=== PATIENT | male | born 1940 | race Caucasian/White ===

== ENCOUNTER 2017-01-21 18:54 | Observation (INO) | payer OTHER ==
[~2017-01-21] VITALS: Ht 180.3 cm; Wt 89.8 kg
[~2017-01-21 18:54] MED LIST: BENTYL20 MG PO; CARAFATE1 GM PO; CLONAZEPAM0.5 MG PO; METOPROLOL TART25 MG PO; PRILOSEC OTC20 MG PO; RAMIPRIL10 MG PO; SIMVASTATIN20 MG PO
[2017-01-21 20:21] LABS: HEMATOCRIT 43.5 % (38.0-50.0); MCH 29.8 PG (29.0-34.0); MCV 87.5 FL (86-99); MEAN PLAT.VOLUME 9.1 uM^3 (9.0-12.4); PLATELET COUNT 189 K/uL (156-360); RBC DIS.WIDTH-CV 14.8 % (11.8-14.6); RBC DIS.WIDTH-SD 47.3 % (39-53); RED BLOOD COUNT 4.97 M/uL (4.00-5.50); WHITE BLOOD COUNT 7.5 K/uL (4.1-10.2)
[2017-01-21 20:29] LABS: CHLORIDE 101 mEq/L (99-109); POTASSIUM 3.9 mEq/L (3.7-5.4); SODIUM 134 mEq/L (136-147)
[2017-01-21 20:31] LABS: GLUCOSE 99 mg/dL (70-99)
[2017-01-21 20:33] LABS: ANION GAP 9 MEQ/L (2-14)
[2017-01-21 20:35] LABS: GFR ESTIMATE (CALCULATED) > 59 mL/min/
[2017-01-21 20:36] LABS: UREA NITROGEN (BUN) 22 mg/dL (9-23)
[2017-01-21 20:40] LABS: TROP-I INTERPRETATION NEGATIVE; TROPONIN-I < 0.01 ng/mL (0.0-0.30)
[2017-01-21 21:39] LABS: HDL CHOLESTEROL 24 MG/DL (Desirable>=40); LDL CHOLESTEROL 92 mg/dL (Desirable<100); NON-HDL CHOLESTEROL 120 mg/dL (Desirable<160); TOTAL CHOLESTEROL 144 mg/dL (Desirable<200); TRIGLYCERIDES 140 MG/DL (Normal: <150)
[2017-01-21] MEDS ORDERED: METOPROLOL SUCC25 MG PO (23:44)
[2017-01-21] MEDS ORDERED: HYDRALAZINE HCL25 MG PO (23:45)
[2017-01-21] MEDS ORDERED: DIOVAN HCT 11 TABLET PO (23:45)
[2017-01-21] MEDS ORDERED: AMLODIPINE BES2.5 MG PO (23:45)
[2017-01-22 01:40] VITALS: BP 139/80
[2017-01-22 06:39] LABS: Estimated Average Glucose 88 mg/dL (70-123); HEMOGLOBIN A1c (GLYCOHEMOGLOB) 4.7 % HGB (Below 5.7)
[2017-01-22 06:53] LABS: TROP-I INTERPRETATION NEGATIVE; TROPONIN-I < 0.01 ng/mL (0.0-0.30)
[2017-01-22 07:33] VITALS: BP 165/84
[2017-01-22 11:13] VITALS: BP 144/82
[2017-01-22 12:47] LABS: TROP-I INTERPRETATION NEGATIVE; TROPONIN-I < 0.01 ng/mL (0.0-0.30)
[2017-01-22] MEDS ORDERED: PRAVASTATIN SOD80 MG PO (13:50)
[2017-01-22] MEDS ORDERED: ASPIRIN EC325 MG PO (13:50)
== END 2017-01-22 14:18 | disposition home or self-care (01) ==
LOC: EME 18:54 → EDOF 01-22 00:42 → 5WEST 01-22 01:35
PROVIDERS: Hospitalist
DX: G45.9 Transient cerebral ischemic attack, unspecified (principal); R47.81 Slurred speech; I10 Essential (primary) hypertension; R06.02 Shortness of breath; R53.1 Weakness; R42 Dizziness and giddiness; I65.23 Occlusion and stenosis of bilateral carotid arteries; R07.89 Other chest pain
CPT/HCPCS: 70450; 70551; 71020; 80048; 80061; 83036; 84484; 85027; 93005; 93880; 99281; 99285; G0378; J1644; J2060

== ENCOUNTER 2017-01-31 09:17 | Observation (INO) | payer OTHER ==
[~2017-01-31] VITALS: Ht 180.3 cm; Wt 90.0 kg
[~2017-01-31 09:17] MED LIST changes: +AMLODIPINE BES2.5 MG PO; +ASPIRIN EC325 MG PO; +DIOVAN HCT 11 TABLET PO; +HYDRALAZINE HCL25 MG PO; +METOPROLOL SUCC25 MG PO; +PRAVASTATIN SOD80 MG PO
[2017-01-31 10:53] LABS: EOSINOPHIL (%) 0.4 % (0-5); HEMATOCRIT 40.9 % (38.0-50.0); IMMATURE GRANULOCYTE (%) 0.3 % (0.0-0.7); INSTRUMENT ABS NEUTROPHIL CT 5.3 K/uL; MCH 30.2 PG (29.0-34.0); MCHC 34.7 G/DL (30.0-36.0); MONOCYTE (%) 8.2 % (3-12); MONOCYTE COUNT 0.6 K/uL (0-0.8); NEUTROPHIL COUNT 5.3 K/uL (1.8-6.4); PLATELET COUNT 144 K/uL (156-360); RBC DIS.WIDTH-CV 15.1 % (11.8-14.6); RBC DIS.WIDTH-SD 47.9 % (39-53); WHITE BLOOD COUNT 6.9 K/uL (4.1-10.2)
[2017-01-31 11:04] LABS: INTER. NORMALIZED RATIO 1.7; PROTHROMBIN TIME 17.9 (9.2-11.2)
[2017-01-31 11:05] LABS: CHLORIDE 103 mEq/L (99-109); SODIUM 136 mEq/L (136-147)
[2017-01-31 11:08] LABS: GLUCOSE 98 mg/dL (70-99)
[2017-01-31 11:09] LABS: ANION GAP 9 MEQ/L (2-14)
[2017-01-31 11:11] LABS: ALKALINE PHOSPHATASE 53 IU/L (3-129); GFR ESTIMATE (CALCULATED) > 59 mL/min/
[2017-01-31 11:12] LABS: UREA NITROGEN (BUN) 19 mg/dL (9-23)
[2017-01-31 11:18] LABS: TROP-I INTERPRETATION NEGATIVE; TROPONIN-I < 0.01 ng/mL (0.0-0.30)
[2017-01-31 13:01] VITALS: BP 110/80
[2017-01-31 13:06] LABS: Estimated Average Glucose 88 mg/dL (70-123); HEMOGLOBIN A1c (GLYCOHEMOGLOB) 4.7 % HGB (Below 5.7)
[2017-01-31 13:23] LABS: HDL CHOLESTEROL 15 MG/DL (Desirable>=40); LDL CHOLESTEROL 49 mg/dL (Desirable<100); NON-HDL CHOLESTEROL 67 mg/dL (Desirable<160); TOTAL CHOLESTEROL 82 mg/dL (Desirable<200); TRIGLYCERIDES 91 MG/DL (Normal: <150)
[2017-01-31 15:09] VITALS: BP 125/79
[2017-01-31] MEDS ORDERED: HYDRALAZINE HCL10 MG PO (15:52)
[2017-01-31 17:40] LABS: TROP-I INTERPRETATION NEGATIVE; TROPONIN-I < 0.01 ng/mL (0.0-0.30)
[2017-01-31 18:15] VITALS: BP 116/71
[2017-01-31 23:03] VITALS: BP 116/72
[2017-02-01 00:17] LABS: TROP-I INTERPRETATION NEGATIVE; TROPONIN-I < 0.01 ng/mL (0.0-0.30)
[2017-02-01 03:57] VITALS: BP 100/58
[2017-02-01 06:12] LABS: INTER. NORMALIZED RATIO 1.2
[2017-02-01 07:47] VITALS: BP 138/83
[2017-02-01 11:32] VITALS: BP 115/77
[2017-02-01] MEDS ORDERED: ELIQUIS5 MG PO (14:12)
[2017-02-01 15:45] VITALS: BP 130/79
== END 2017-02-01 16:48 | disposition home or self-care (01) ==
LOC: EME → EDBD 09:17 → EME 09:17 → EDOF 12:05 → 5WEST 12:05
PROVIDERS: Emergency Medicine; Internal Medicine; Internal Medicine Cardiovascular Disease
DX: R07.89 Other chest pain (principal); I48.0 Paroxysmal atrial fibrillation; I48.92 Unspecified atrial flutter; I10 Essential (primary) hypertension; E78.5 Hyperlipidemia, unspecified; M19.90 Unspecified osteoarthritis, unspecified site; Z86.73 Personal history of transient ischemic attack (TIA), and cerebral infarction without residual deficits; G45.9 Transient cerebral ischemic attack, unspecified
CPT/HCPCS: 70450; 71020; 80053; 80061; 83036; 84484; 85025; 85610; 85730; 93005; 93306; 99281; 99283; G0378

== ENCOUNTER 2017-03-08 09:22 | Day surgery (SDC) | payer OTHER ==
[~2017-03-08] VITALS: Ht 182.9 cm; Wt 88.0 kg
[~2017-03-08 09:22] MED LIST changes: +ELIQUIS5 MG PO; +HYDRALAZINE HCL10 MG PO
== END 2017-03-08 11:40 | disposition home or self-care (01) ==
LOC: CATH 09:22
PROC: 5A2204Z Restoration of Cardiac Rhythm, Single (ICD-10-PCS; principal; 2017-03-08)
DX: I48.1 Persistent atrial fibrillation (principal); I48.92 Unspecified atrial flutter; I10 Essential (primary) hypertension; E66.9 Obesity, unspecified; I65.23 Occlusion and stenosis of bilateral carotid arteries; I71.2 Thoracic aortic aneurysm, without rupture; Z79.01 Long term (current) use of anticoagulants; Z86.73 Personal history of transient ischemic attack (TIA), and cerebral infarction without residual deficits; Z68.27 Body mass index [BMI] 27.0-27.9, adult
CPT/HCPCS: 93005

== ENCOUNTER 2017-04-25 19:20 | Observation (INO) | payer OTHER ==
[~2017-04-25] VITALS: Ht 180.3 cm; Wt 88.6 kg
[2017-04-25 21:21] LABS: HEMATOCRIT 43.5 % (38.0-50.0); MCHC 34.9 G/DL (30.0-36.0); MCV 88.8 FL (86-99); MEAN PLAT.VOLUME 8.8 uM^3 (9.0-12.4); PLATELET COUNT 184 K/uL (156-360); RBC DIS.WIDTH-CV 15.5 % (11.8-14.6); RBC DIS.WIDTH-SD 50.6 % (39-53); WHITE BLOOD COUNT 6.5 K/uL (4.1-10.2)
[2017-04-25 21:29] LABS: CHLORIDE 102 mEq/L (99-109); POTASSIUM 3.9 mEq/L (3.7-5.4); SODIUM 136 mEq/L (136-147)
[2017-04-25 21:31] LABS: GLUCOSE 102 mg/dL (70-99)
[2017-04-25 21:32] LABS: ANION GAP 13 MEQ/L (2-14)
[2017-04-25 21:34] LABS: GFR ESTIMATE (CALCULATED) > 59 mL/min/
[2017-04-25 21:35] LABS: UREA NITROGEN (BUN) 17 mg/dL (9-23)
[2017-04-25 21:52] LABS: ADD MIUA? NO; BILIRUBIN NEGATIVE; BLOOD NEGATIVE; COLOR YELLOW ((YELLOW)); GLUCOSE (STRIP) NEGATIVE; KETONES NEGATIVE; LEUKOCYTES NEGATIVE; NITRITE NEGATIVE; PROTEIN (STRIP) NEGATIVE; SPECIFIC GRAVITY 1.014 (1.000-1.030); UCUL ADDED? NO; UROBILINOGEN 0.2 MG/DL (0.2-1.0)
[2017-04-25 22:01] LABS: TROP-I INTERPRETATION NEGATIVE; TROPONIN-I < 0.01 ng/mL (0.0-0.30)
[2017-04-26] VITALS (7 sets, daily range): BP systolic 111–170; BP diastolic 57–98
[2017-04-26 02:12] LABS: HDL CHOLESTEROL 21 MG/DL (Desirable>=40); LDL CHOLESTEROL 66 mg/dL (Desirable<100); NON-HDL CHOLESTEROL 90 mg/dL (Desirable<160); SAMPLE HEMOLYSIS CHECK 0; SAMPLE ICTERIC CHECK 0; SAMPLE LIPEMIA CHECK 0; TOTAL CHOLESTEROL 111 mg/dL (Desirable<200); TRIGLYCERIDES 119 MG/DL (Normal: <150)
[2017-04-26] MEDS ORDERED: XARELTO20 MG PO (03:30)
[2017-04-26 05:31] LABS: HEMATOCRIT 41.2 % (38.0-50.0); MCH 31.6 PG (29.0-34.0); MCV 90.4 FL (86-99); MEAN PLAT.VOLUME 9.2 uM^3 (9.0-12.4); PLATELET COUNT 179 K/uL (156-360); RBC DIS.WIDTH-CV 15.6 % (11.8-14.6); RBC DIS.WIDTH-SD 51.1 % (39-53); RED BLOOD COUNT 4.56 M/uL (4.00-5.50); WHITE BLOOD COUNT 5.7 K/uL (4.1-10.2)
[2017-04-26 07:58] LABS: Estimated Average Glucose 94 mg/dL (70-123); HEMOGLOBIN A1c (GLYCOHEMOGLOB) 4.9 % HGB (Below 5.7)
[2017-04-27 04:27] VITALS: BP 134/79
[2017-04-27 08:28] VITALS: BP 154/84
== END 2017-04-27 15:56 | disposition home or self-care (01) ==
LOC: EME → EDBD 19:20 → EDOF 04-26 00:09 → 5WEST 04-26 00:09 → EDOF 04-26 00:09 → ENRESERV 04-26 00:19 → 5WEST 04-26 02:25
PROVIDERS: Emergency Medicine; Internal Medicine
DX: G45.9 Transient cerebral ischemic attack, unspecified (principal); I10 Essential (primary) hypertension; R07.9 Chest pain, unspecified; I48.0 Paroxysmal atrial fibrillation; I25.10 Atherosclerotic heart disease of native coronary artery without angina pectoris; I25.2 Old myocardial infarction; E78.5 Hyperlipidemia, unspecified; Z79.01 Long term (current) use of anticoagulants; I27.2 Other secondary pulmonary hypertension; G93.0 Cerebral cysts; Z86.73 Personal history of transient ischemic attack (TIA), and cerebral infarction without residual deficits; F41.9 Anxiety disorder, unspecified; Z85.820 Personal history of malignant melanoma of skin
CPT/HCPCS: 70450; 70544; 70551; 71010; 80048; 80061; 81003; 83036; 84484; 85027; 93005; 93880; 99281; 99284; G0378; J2060

== ENCOUNTER → 2017-05-04 | Outpatient (CLI) | payer OTHER ==
[~2017-05-04] MED LIST changes: +POTASSIUM GLUCO99 M1 PO; +XARELTO20 MG PO
== END | disposition home or self-care (01) ==
LOC: RAD 16:30
DX: J98.4 Other disorders of lung (principal)
CPT/HCPCS: 71275

== ENCOUNTER 2017-05-06 23:02 | Inpatient (IN) | payer OTHER ==
[~2017-05-06] VITALS: Ht 177.8 cm; Wt 96.4 kg
[~2017-05-06 23:02] MED LIST changes: -POTASSIUM GLUCO99 M1 PO
[2017-05-06 23:43] LABS: EOSINOPHIL (%) 0.8 % (0-5); EOSINOPHIL COUNT 0.1 K/uL (0-0.3); HEMATOCRIT 38.6 % (38.0-50.0); IMMATURE GRANULOCYTE (%) 1.3 % (0.0-0.7); IMMATURE GRANULOCYTE COUNT 0.1 K/uL; INSTRUMENT ABS NEUTROPHIL CT 6.3 K/uL; LYMPHOCYTE COUNT 0.9 K/uL (1.0-2.8); MCH 31.1 PG (29.0-34.0); MCHC 35.2 G/DL (30.0-36.0); MCV 88.1 FL (86-99); MEAN PLAT.VOLUME 10.4 uM^3 (9.0-12.4); MONOCYTE (%) 7.1 % (3-12); MONOCYTE COUNT 0.6 K/uL (0-0.8); NEUTROPHIL (%) 79.1 % (45-76); NEUTROPHIL COUNT 6.3 K/uL (1.8-6.4); PLATELET COUNT 154 K/uL (156-360); RBC DIS.WIDTH-CV 16.1 % (11.8-14.6); RBC DIS.WIDTH-SD 50.4 % (39-53); RED BLOOD COUNT 4.38 M/uL (4.00-5.50)
[2017-05-06 23:53] LABS: INTER. NORMALIZED RATIO 1.4; PROTHROMBIN TIME 15.4 SEC (10.2-12.9)
[2017-05-06 23:54] LABS: CHLORIDE 97 mEq/L (99-109); POTASSIUM 3.4 mEq/L (3.7-5.4); SODIUM 126 mEq/L (136-147)
[2017-05-06 23:55] LABS: MAGNESIUM 1.6 mg/dL (1.3-2.7); PTT 28.3 SEC (25-37)
[2017-05-06 23:56] LABS: GLUCOSE 131 mg/dL (70-99)
[2017-05-06 23:57] LABS: ANION GAP 17 MEQ/L (2-14)
[2017-05-07] LABS: GFR ESTIMATE (CALCULATED) 52 mL/min/
[2017-05-07 00:01] LABS: UREA NITROGEN (BUN) 38 mg/dL (9-23)
[2017-05-07 00:05] LABS: TROP-I INTERPRETATION NEGATIVE; TROPONIN-I 0.02 ng/mL (0.0-0.30)
[2017-05-07] MEDS ORDERED: POTASSIUM GLUCO99 M1 PO (01:25)
[2017-05-07 04:34] VITALS: BP 163/92
[2017-05-07 06:15] LABS: TROP-I INTERPRETATION NEGATIVE; TROPONIN-I 0.05 ng/mL (0.0-0.30)
[2017-05-07 07:12] VITALS: BP 116/83
[2017-05-07 07:55] LABS: EOSINOPHIL (%) 0.7 % (0-5); EOSINOPHIL COUNT 0.1 K/uL (0-0.3); HEMATOCRIT 40.5 % (38.0-50.0); IMMATURE GRANULOCYTE (%) 0.6 % (0.0-0.7); IMMATURE GRANULOCYTE COUNT 0.1 K/uL; INSTRUMENT ABS NEUTROPHIL CT 7.5 K/uL; LYMPHOCYTE COUNT 1.4 K/uL (1.0-2.8); MCH 31.1 PG (29.0-34.0); MCHC 34.8 G/DL (30.0-36.0); MCV 89.2 FL (86-99); MEAN PLAT.VOLUME 10.9 uM^3 (9.0-12.4); MONOCYTE (%) 13.5 % (3-12); MONOCYTE COUNT 1.4 K/uL (0-0.8); NEUTROPHIL (%) 71.2 % (45-76); NEUTROPHIL COUNT 7.5 K/uL (1.8-6.4); PLATELET COUNT 178 K/uL (156-360); RBC DIS.WIDTH-CV 16.5 % (11.8-14.6); RBC DIS.WIDTH-SD 53.1 % (39-53); RED BLOOD COUNT 4.54 M/uL (4.00-5.50); WHITE BLOOD COUNT 10.5 K/uL (4.1-10.2)
[2017-05-07 08:22] LABS: ALKALINE PHOSPHATASE 55 IU/L (3-129); ANION GAP 17 MEQ/L (2-14); CHLORIDE 98 MEQ/L (99-109); GFR ESTIMATE (CALCULATED) 57 mL/min/; GLUCOSE 118 mg/dL (70-99); SAMPLE HEMOLYSIS CHECK 0; SAMPLE ICTERIC CHECK 0; SAMPLE LIPEMIA CHECK 0; SODIUM 127 MEQ/L (136-147); TOTAL BILIRUBIN 1.5 MG/DL (0.0-1.0); UREA NITROGEN (BUN) 33 mg/dL (9-23)
[2017-05-07 09:36] LABS: BASE EXCESS -8.6 mEq/L (-3 to +3); BICARBONATE 14.5 mEq/L (22-26); CARBOXY HGB 2.7 % (0-5); METHEMOGLOBIN 1.4 % (0-1.5); PCO2 24 mm Hg (35-45); PO2 70 mm Hg (80-100); SITE RR; pH 7.39 (7.35-7.45)
[2017-05-07 09:37] LABS: COMMENTS - BLOOD GASES A+C+; DEVICE NC; O2 FLOW 2 L/MIN; TOTAL RESP RATE 32 resp/min
[2017-05-07 11:16] VITALS: BP 113/76
[2017-05-07 11:26] LABS: TROP-I INTERPRETATION NEGATIVE; TROPONIN-I 0.03 ng/mL (0.0-0.30)
[2017-05-07 15:50] VITALS: BP 161/88
[2017-05-07 16:57] LABS: BASE EXCESS -8.6 mEq/L (-3 to +3); BICARBONATE 14.5 mEq/L (22-26); CARBOXY HGB 2.7 % (0-5); COMMENTS - BLOOD GASES A+C+; METHEMOGLOBIN 1.5 % (0-1.5); O2 FLOW 3 L/MIN; PCO2 24 mm Hg (35-45); PO2 70 mm Hg (80-100); SITE RR; pH 7.39 (7.35-7.45)
[2017-05-07 16:58] LABS: DEVICE NC; TOTAL RESP RATE 30 resp/min
[2017-05-07 19:42] LABS: CHLORIDE 97 mEq/L (99-109); POTASSIUM 4.1 mEq/L (3.7-5.4); SODIUM 126 mEq/L (136-147)
[2017-05-07 19:43] LABS: GLUCOSE 121 mg/dL (70-99)
[2017-05-07 19:45] VITALS: BP 153/97
[2017-05-07 19:45] LABS: ANION GAP 16 MEQ/L (2-14)
[2017-05-07 19:47] LABS: GFR ESTIMATE (CALCULATED) 52 mL/min/
[2017-05-07 19:48] LABS: UREA NITROGEN (BUN) 31 mg/dL (9-23)
[2017-05-07 21:50] LABS: ANION GAP 16 MEQ/L (2-14); CHLORIDE 96 MEQ/L (99-109); MAGNESIUM 1.6 mg/dl (1.3-2.7); POTASSIUM 4.1 MEQ/L (3.7-5.4); SAMPLE HEMOLYSIS CHECK 0; SAMPLE ICTERIC CHECK 0; SAMPLE LIPEMIA CHECK 0; SODIUM 127 MEQ/L (136-147); TOTAL BILIRUBIN 1.5 MG/DL (0.0-1.0)
[2017-05-07 21:56] LABS: ALKALINE PHOSPHATASE 56 IU/L (3-129); GFR ESTIMATE (CALCULATED) 57 mL/min/; GLUCOSE 110 mg/dL (70-99); UREA NITROGEN (BUN) 30 mg/dL (9-23)
[2017-05-07 21:59] LABS: TROP-I INTERPRETATION NEGATIVE; TROPONIN-I 0.04 ng/mL (0.0-0.30)
[2017-05-07 23:29] VITALS: BP 112/77
[2017-05-08 02:51] VITALS: BP 112/68
[2017-05-08 06:24] LABS: HEMATOCRIT 34.5 % (38.0-50.0); MCH 31.7 PG (29.0-34.0); MCHC 35.1 G/DL (30.0-36.0); MCV 90.3 FL (86-99); MEAN PLAT.VOLUME 10.3 uM^3 (9.0-12.4); PLATELET COUNT 130 K/uL (156-360); RBC DIS.WIDTH-CV 17.2 % (11.8-14.6); RBC DIS.WIDTH-SD 54.5 % (39-53); RED BLOOD COUNT 3.82 M/uL (4.00-5.50); WHITE BLOOD COUNT 6.4 K/uL (4.1-10.2)
[2017-05-08 06:28] LABS: ANION GAP 15 MEQ/L (2-14); CHLORIDE 100 MEQ/L (99-109); GFR ESTIMATE (CALCULATED) 57 mL/min/; GLUCOSE 101 mg/dL (70-99); MAGNESIUM 1.5 mg/dl (1.3-2.7); POTASSIUM 4.3 MEQ/L (3.7-5.4); SAMPLE HEMOLYSIS CHECK 0; SAMPLE ICTERIC CHECK 0; SAMPLE LIPEMIA CHECK 0; SODIUM 130 MEQ/L (136-147); UREA NITROGEN (BUN) 31 mg/dL (9-23)
[2017-05-08 08:30] VITALS: BP 131/90
[2017-05-08 11:20] VITALS: BP 120/71
[2017-05-08 11:47] LABS: INTERNAL CONTROL VALID? YES
[2017-05-08 13:46] LABS: BICARBONATE 13.6 mEq/L (22-26); CARBOXY HGB 2.6 % (0-5); DEVICE NC; METHEMOGLOBIN 1.4 % (0-1.5); O2 FLOW 3 L/MIN; PCO2 24 mm Hg (35-45); PO2 84 mm Hg (80-100); SITE RR; TOTAL RESP RATE 30 resp/min; pH 7.36 (7.35-7.45)
[2017-05-08 15:01] LABS: COMMENTS - BLOOD GASES A+C+
[2017-05-08 16:17] VITALS: BP 128/84
[2017-05-08 16:29] LABS: ADD MIUA? YES; BILIRUBIN NEGATIVE; BLOOD MODERATE; COLOR YELLOW ((YELLOW)); GLUCOSE (STRIP) NEGATIVE; KETONES NEGATIVE; LEUKOCYTES NEGATIVE; NITRITE NEGATIVE; PROTEIN (STRIP) NEGATIVE; SPECIFIC GRAVITY 1.013 (1.000-1.030); UROBILINOGEN 0.2 MG/DL (0.2-1.0)
[2017-05-08 16:41] LABS: BACTERIA RARE /HPF; EPITHELIAL CELLS RARE /HPF; MUCUS TRACE /LPF; RED BLOOD CELLS 0-5 /HPF (0-5); UCUL ADDED? NO; WHITE BLOOD CELLS 0-5 /HPF (0-5)
[2017-05-08 19:33] VITALS: BP 133/84
[2017-05-08 23:08] VITALS: BP 134/91
[2017-05-09] VITALS (14 sets, daily range): BP systolic 101–135; BP diastolic 61–87
[2017-05-09 05:37] LABS: HEMATOCRIT 33.2 % (38.0-50.0); MCHC 34.9 G/DL (30.0-36.0); MCV 91.5 FL (86-99); MEAN PLAT.VOLUME 10.5 uM^3 (9.0-12.4); PLATELET COUNT 134 K/uL (156-360); RBC DIS.WIDTH-CV 17.7 % (11.8-14.6); RBC DIS.WIDTH-SD 56.2 % (39-53); RED BLOOD COUNT 3.63 M/uL (4.00-5.50); WHITE BLOOD COUNT 5.5 K/uL (4.1-10.2)
[2017-05-09 06:01] LABS: ANION GAP 13 MEQ/L (2-14); CHLORIDE 101 MEQ/L (99-109); GFR ESTIMATE (CALCULATED) 45 mL/min/; GLUCOSE 92 mg/dL (70-99); MAGNESIUM 1.7 mg/dl (1.3-2.7); POTASSIUM 3.9 MEQ/L (3.7-5.4); SAMPLE HEMOLYSIS CHECK 0; SAMPLE ICTERIC CHECK 0; SAMPLE LIPEMIA CHECK 0; SODIUM 133 MEQ/L (136-147); UREA NITROGEN (BUN) 33 mg/dL (9-23)
[2017-05-10] VITALS (8 sets, daily range): BP systolic 108–140; BP diastolic 50–91
[2017-05-10 05:51] LABS: BASOPHIL COUNT 0.1 K/uL (0-0.1); EOSINOPHIL (%) 1.4 % (0-5); EOSINOPHIL COUNT 0.1 K/uL (0-0.3); IMMATURE GRANULOCYTE (%) 0.7 % (0.0-0.7); INSTRUMENT ABS NEUTROPHIL CT 4.1 K/uL; LYMPHOCYTE COUNT 0.7 K/uL (1.0-2.8); MCH 31.1 PG (29.0-34.0); MCHC 33.8 G/DL (30.0-36.0); MCV 91.9 FL (86-99); MEAN PLAT.VOLUME 10.4 uM^3 (9.0-12.4); MONOCYTE (%) 12.1 % (3-12); MONOCYTE COUNT 0.7 K/uL (0-0.8); NEUTROPHIL (%) 72.6 % (45-76); NEUTROPHIL COUNT 4.1 K/uL (1.8-6.4); PLATELET COUNT 134 K/uL (156-360); WHITE BLOOD COUNT 5.7 K/uL (4.1-10.2)
[2017-05-10 06:13] LABS: POTASSIUM ND MEQ/L (3.7-5.4)
[2017-05-10 06:29] LABS: ANION GAP 12 MEQ/L (2-14); CHLORIDE 101 MEQ/L (99-109); GFR ESTIMATE (CALCULATED) 39 mL/min/; GLUCOSE 90 mg/dL (70-99); SAMPLE HEMOLYSIS CHECK 1; SAMPLE ICTERIC CHECK 0; SAMPLE LIPEMIA CHECK 0; SODIUM 133 MEQ/L (136-147); UREA NITROGEN (BUN) 35 mg/dL (9-23)
[2017-05-10 08:05] LABS: MAGNESIUM 1.7 mg/dl (1.3-2.7); POTASSIUM 3.7 MEQ/L (3.7-5.4)
[2017-05-11 03:42] VITALS: BP 124/77
[2017-05-11 07:20] VITALS: BP 119/84
[2017-05-11 07:32] LABS: EOSINOPHIL COUNT 0.1 K/uL (0-0.3); HEMATOCRIT 34.6 % (38.0-50.0); IMMATURE GRANULOCYTE (%) 0.8 % (0.0-0.7); INSTRUMENT ABS NEUTROPHIL CT 3.4 K/uL; LYMPHOCYTE COUNT 0.7 K/uL (1.0-2.8); MCHC 33.8 G/DL (30.0-36.0); MCV 91.5 FL (86-99); MEAN PLAT.VOLUME 9.7 uM^3 (9.0-12.4); MONOCYTE (%) 13.9 % (3-12); MONOCYTE COUNT 0.7 K/uL (0-0.8); NEUTROPHIL (%) 67.6 % (45-76); NEUTROPHIL COUNT 3.4 K/uL (1.8-6.4); PLATELET COUNT 139 K/uL (156-360); RBC DIS.WIDTH-CV 18.5 % (11.8-14.6); RED BLOOD COUNT 3.78 M/uL (4.00-5.50)
[2017-05-11 07:57] LABS: ANION GAP 12 MEQ/L (2-14); CHLORIDE 102 MEQ/L (99-109); GFR ESTIMATE (CALCULATED) 42 mL/min/; GLUCOSE 89 mg/dL (70-99); POTASSIUM 3.7 MEQ/L (3.7-5.4); SAMPLE HEMOLYSIS CHECK 0; SAMPLE ICTERIC CHECK 0; SAMPLE LIPEMIA CHECK 0; SODIUM 137 MEQ/L (136-147); UREA NITROGEN (BUN) 36 mg/dL (9-23)
[2017-05-11 12:00] VITALS: BP 115/79
[2017-05-11 16:05] VITALS: BP 119/79
[2017-05-11 19:30] VITALS: BP 116/88
[2017-05-12] VITALS (7 sets, daily range): BP systolic 108–133; BP diastolic 66–92
[2017-05-12 07:17] LABS: EOSINOPHIL (%) 1.6 % (0-5); EOSINOPHIL COUNT 0.1 K/uL (0-0.3); HEMATOCRIT 33.8 % (38.0-50.0); IMMATURE GRANULOCYTE (%) 0.6 % (0.0-0.7); INSTRUMENT ABS NEUTROPHIL CT 3.3 K/uL; LYMPHOCYTE COUNT 0.8 K/uL (1.0-2.8); MCH 31.8 PG (29.0-34.0); MCHC 34.6 G/DL (30.0-36.0); MCV 91.8 FL (86-99); MEAN PLAT.VOLUME 9.1 uM^3 (9.0-12.4); MONOCYTE (%) 12.3 % (3-12); MONOCYTE COUNT 0.6 K/uL (0-0.8); NEUTROPHIL (%) 68.5 % (45-76); NEUTROPHIL COUNT 3.3 K/uL (1.8-6.4); PLATELET COUNT 128 K/uL (156-360); RBC DIS.WIDTH-CV 18.6 % (11.8-14.6); RBC DIS.WIDTH-SD 59.8 % (39-53); RED BLOOD COUNT 3.68 M/uL (4.00-5.50); WHITE BLOOD COUNT 4.9 K/uL (4.1-10.2)
[2017-05-12 07:46] LABS: ANION GAP 12 MEQ/L (2-14); CHLORIDE 102 MEQ/L (99-109); GFR ESTIMATE (CALCULATED) 45 mL/min/; GLUCOSE 92 mg/dL (70-99); POTASSIUM 3.9 MEQ/L (3.7-5.4); SAMPLE HEMOLYSIS CHECK 0; SAMPLE ICTERIC CHECK 0; SAMPLE LIPEMIA CHECK 0; SODIUM 137 MEQ/L (136-147); UREA NITROGEN (BUN) 38 mg/dL (9-23)
[2017-05-13 03:27] VITALS: BP 130/80
[2017-05-13 07:02] LABS: HEMATOCRIT 34.5 % (38.0-50.0); MCH 31.5 PG (29.0-34.0); MCHC 33.9 G/DL (30.0-36.0); MCV 92.7 FL (86-99); MEAN PLAT.VOLUME 9.4 uM^3 (9.0-12.4); PLATELET COUNT 136 K/uL (156-360); RBC DIS.WIDTH-SD 62.1 % (39-53); RED BLOOD COUNT 3.72 M/uL (4.00-5.50)
[2017-05-13 07:22] LABS: ALKALINE PHOSPHATASE 47 IU/L (3-129); ANION GAP 11 MEQ/L (2-14); CHLORIDE 104 MEQ/L (99-109); GFR ESTIMATE (CALCULATED) 52 mL/min/; GLUCOSE 87 mg/dL (70-99); SAMPLE HEMOLYSIS CHECK 0; SAMPLE ICTERIC CHECK 0; SAMPLE LIPEMIA CHECK 0; SODIUM 138 MEQ/L (136-147); TOTAL BILIRUBIN 1.8 MG/DL (0.0-1.0); UREA NITROGEN (BUN) 41 mg/dL (9-23)
[2017-05-13 07:30] VITALS: BP 132/85
[2017-05-13] MEDS ORDERED: FUROSEMIDE20 MG PO (09:00)
[2017-05-13] MEDS ORDERED: CARDIZEM CD,CA240 MG PO (09:00)
[2017-05-13] MEDS ORDERED: XARELTO15 MG PO (09:00)
[2017-05-13 11:40] VITALS: BP 131/84
[2017-05-13 12:58] LABS: ANION GAP 11 MEQ/L (2-14); CHLORIDE 104 MEQ/L (99-109); GFR ESTIMATE (CALCULATED) 52 mL/min/; GLUCOSE 87 mg/dL (70-99); SAMPLE HEMOLYSIS CHECK 0; SAMPLE ICTERIC CHECK 0; SAMPLE LIPEMIA CHECK 0; SODIUM 138 MEQ/L (136-147); UREA NITROGEN (BUN) 41 mg/dL (9-23)
== END 2017-05-13 13:30 | DRG 872 ==
LOC: EME → EDBD 23:02 → EME 23:02 → EDOF 05-07 02:03 → 4EAST 05-07 02:03 → ENRESERV 05-07 02:08 → 4EAST 05-07 04:23 → ENRESERV 05-10 17:40 → 2EAST 05-10 20:57
PROVIDERS: Emergency Medicine; Hospitalist; Internal Medicine; Internal Medicine Nephrology; Internal Medicine Pulmonary Disease; Physician Assistant
DX: A41.9 Sepsis, unspecified organism (principal); N17.9 Acute kidney failure, unspecified; I13.0 Hypertensive heart and chronic kidney disease with heart failure and stage 1 through stage 4 chronic kidney disease, or unspecified chronic kidney disease; E87.4 Mixed disorder of acid-base balance; E87.1 Hypo-osmolality and hyponatremia; I48.2 Chronic atrial fibrillation; N28.1 Cyst of kidney, acquired; R09.02 Hypoxemia; I27.2 Other secondary pulmonary hypertension; R65.20 Severe sepsis without septic shock; E78.00 Pure hypercholesterolemia, unspecified; R07.9 Chest pain, unspecified; I25.10 Atherosclerotic heart disease of native coronary artery without angina pectoris; E87.6 Hypokalemia; E78.5 Hyperlipidemia, unspecified; N18.3 Chronic kidney disease, stage 3 (moderate); F03.90 Unspecified dementia, unspecified severity, without behavioral disturbance, psychotic disturbance, mood disturbance, and anxiety; Z85.820 Personal history of malignant melanoma of skin; Z86.73 Personal history of transient ischemic attack (TIA), and cerebral infarction without residual deficits; Z79.01 Long term (current) use of anticoagulants; I25.2 Old myocardial infarction
CPT/HCPCS: 36600; 71010; 71020; 71275; 74176; 76770; 80048; 80048 91; 80053; 80202; 81003; 82140; 82803; 83605; 83735; 83880; 83930; 83935; 84100; 84300; 84484; 84999; 85025; 85027; 85610; 85730; 87040; 87070; 87205; 87449; 93005; 93306; 94640; 94640 76; 94667; 94668; 94760; 94799; 99202; 99281; 99285; J1940; J1956; J2543; J3370; J7030; J7050; J7120